=== PATIENT | male | born 2005 | race Two or more races ===

== ENCOUNTER → 2024-06-24 | Outpatient (CLI) | payer OTHER, SELFPAY ==
--- NOTE | 2024-06-24 13:11 | XR_ITS ---
Examination: Foot, right, 3 views Technique: AP, oblique, lateral views foot, 3 views Date and time of exam: July 12, 2024 1431 hours INDICATIONS: Work injury today to the foot with heel pain. FINDINGS: Normal bone density Calcaneus and remaining osseous structures appear intact No foreign body IMPRESSION: No fracture or dislocation
== END | disposition home or self-care (01) ==
LOC: CDIM 13:01
PROVIDERS: PCP Family Medicine; Referring Provider Physician Assistant; Visit Provider Physician Assistant
DX: S99.921A Unspecified injury of right foot, initial encounter (principal); X58.XXXA Exposure to other specified factors, initial encounter
CPT/HCPCS: 73630